=== PATIENT | female | born 1945 | race Caucasian/White ===

== ENCOUNTER 2016-08-18 16:16 | Emergency (ER) | payer OTHER, MEDICARE ==
[~2016-08-18] VITALS: Ht 157.5 cm; Wt 74.6 kg
[2016-08-18 16:20] VITALS: BP 181/90
== END 2016-08-18 20:32 | disposition home or self-care (01) ==
LOC: EME 16:16
DX: M79.604 Pain in right leg (principal); R20.0 Anesthesia of skin; M79.89 Other specified soft tissue disorders; Z86.718 Personal history of other venous thrombosis and embolism; Z87.891 Personal history of nicotine dependence
CPT/HCPCS: 93971; 99281; 99285